=== PATIENT | female | born 1960 | race Caucasian/White ===

== ENCOUNTER 2022-10-13 09:38 | Day surgery (SDC) | payer MEDICAID ==
[2022-10-08 09:17] LABS: Basophils # (auto) 0 10 ^3/uL (0-0.2); Basophils % (auto) 0.6 % (0.0-2.0); Eosinophils # (auto) 0.1 10 ^3/uL (0-0.8); Eosinophils % (auto) 1.5 % (0.0-7.0); Hematocrit 48.8 % (36.0-46.0); Hemoglobin 16.3 g/dL (12.2-16.2); Lymphocytes # (auto) 2.5 10 ^3/uL (0.4-5.4); Lymphocytes % (auto) 36.7 % (10.0-50.0); Mean Corpuscular Hemoglobin 29.4 pg (28.0-32.0); Mean Corpuscular Hgb Conc. 33.3 g/dL (32.0-36.0); Mean Corpuscular Volume 88.3 fL (80.0-100.0); Monocytes # (auto) 0.6 10 ^3/uL (0-1.3); Monocytes % (auto) 8.4 % (0.0-12.0); Neutrophils # (auto) 3.6 10 ^3/uL (1.6-8.6); Neutrophils % (auto) 52.8 % (37.0-80.0); Nucleated Red Blood Cells % 0.7 %; Red Blood Cells 5.53 10^6/uL (4.0-5.20); White Blood Cell 6.8 10^3/uL (4.4-10.8)
[2022-10-08 09:33] LABS: Urine Bacteria NONE SEEN /hpf (None Seen); Urine Blood Negative /uL (Negative); Urine Mucus FEW (None Seen); Urine Specific Gravity 1.028 (1.001-1.035); Urine WBC 33 /hpf (0 - 5)
[2022-10-08 10:03] LABS: INR 1.01 (0.9-1.15); Partial Thromboplastin Time 31.6 sec (24.6-33.4)
[2022-10-08 13:40] LABS: BUN/Creatinine Ratio 16.3; Potassium 3.7 mmol/L (3.5-5.1)
[2022-10-08 13:41] LABS: Albumin 3.7 g/dL (3.4-5.0); Bilirubin, Total 0.4 mg/dL (0.2-1.0); Total Protein 7.8 g/dL (6.4-8.2)
[~2022-10-13] VITALS: Ht 162.6 cm; Wt 90.7 kg
[~2022-10-13 09:38] MED LIST: DAKINS HALF STR 0.25% (NaHypochlorite) 473 ML TOPICAL SOL TOP ONE; EMPA1TAB PO; TRIATAB3 PO
[2022-10-13] MEDS ORDERED: ceFAZolin 1GM/50ML 100 ML IV ONE (10:54)
[2022-10-13] MEDS ORDERED: ROCURONIUM 10MG/ML 10ML VIAL IV ONE (11:24)
[2022-10-13] MEDS ORDERED: fentaNYL CITRATE 0 ML ONE (11:24)
[2022-10-13] MEDS ORDERED: MIDAZOLAM HCL 2MG/2ML 2ml VIAL (1mg/ml) ONE (11:24)
[2022-10-13] MEDS ORDERED: LIDOCAINE 2% (LOCAL ANESTH.) PF 5ml SDV ONE (11:43)
[2022-10-13] MEDS ORDERED: ONDANSETRON HCL 4 MG/2 ML VIAL ONE (11:43)
[2022-10-13] MEDS ORDERED: PROPOFOL 10 MG/ML 20 ML IV ONE (11:43)
[2022-10-13] MEDS ORDERED: fentaNYL CITRATE 100 MCG/2 ML VL ONE (12:45)
[2022-10-13 13:55] VITALS: BP 131/80
== END 2022-10-13 14:10 | disposition home or self-care (01) ==
LOC: SUR 09:38
PROVIDERS: ATTEND Podiatrist
DX: M20.12 Hallux valgus (acquired), left foot (principal); M21.612 Bunion of left foot; E11.42 Type 2 diabetes mellitus with diabetic polyneuropathy; M10.072 Idiopathic gout, left ankle and foot; Z72.89 Other problems related to lifestyle; Z90.710 Acquired absence of both cervix and uterus; Z87.891 Personal history of nicotine dependence; Z98.890 Other specified postprocedural states; Z20.822 Contact with and (suspected) exposure to COVID-19
CPT/HCPCS: 28296; 36415; 73620; 76000; 80053; 81001; 82962; 85025; 85610; 85730; C1769; J0690; J2001; J2250; J2405; J2704; J3010; U0003